=== PATIENT | male | born 1945 | race Caucasian/White ===

== ENCOUNTER 2023-12-21 19:23 | Emergency (ER) | payer MEDICARE, OTHER | END 2023-12-21 21:30 | disposition home or self-care (01) | LOC: NAV ERS 19:23 | DX: S41.111A Laceration without foreign body of right upper arm, initial encounter (principal); S01.81XA Laceration without foreign body of other part of head, initial encounter; I10 Essential (primary) hypertension; W18.30XA Fall on same level, unspecified, initial encounter | CPT/HCPCS: 70450; 72125 ==